=== PATIENT | male | born 1960 | race Caucasian/White ===

== ENCOUNTER 2021-07-09 10:31 | Day surgery (SDC) | payer BC, OTHER ==
[2021-07-09] MEDS ORDERED: KETAMINE HCL 500 MG/10 ML VIAL ONE (12:52)
== END 2021-07-09 14:35 | disposition home or self-care (01) ==
LOC: FECT 10:31
PROVIDERS: ATTEND Psychiatry & Neurology Psychiatry
PROC: GZB4ZZZ Other Electroconvulsive Therapy (ICD-10-PCS; principal; 2021-07-09 12:00)
DX: F32.9 Major depressive disorder, single episode, unspecified (principal)
CPT/HCPCS: 90870; 93005; 93010; 94760; C9803; U0003; U0005

== ENCOUNTER 2021-07-12 09:51 | Day surgery (SDC) | payer BC, OTHER ==
[2021-07-12 10:26] VITALS: BMI 38.0
[2021-07-12] MEDS ORDERED: KETAMINE HCL 500 MG/10 ML VIAL ONE (12:28)
[2021-07-12 13:58] VITALS: TEMP 97.8
[2021-07-12 14:16] VITALS: BP 124/70; PULSE 76
== END 2021-07-12 13:55 | disposition home or self-care (01) ==
LOC: FECT 09:51
PROVIDERS: ATTEND Psychiatry & Neurology Psychiatry
PROC: GZB4ZZZ Other Electroconvulsive Therapy (ICD-10-PCS; principal; 2021-07-12 12:00)
DX: F32.9 Major depressive disorder, single episode, unspecified (principal)
CPT/HCPCS: 90870; 94760; C9803; U0003; U0005

== ENCOUNTER 2021-07-16 10:02 | Day surgery (SDC) | payer BC ==
[2021-07-16 11:17] VITALS: BMI 38.0
[2021-07-16] MEDS ORDERED: KETAMINE HCL 500 MG/10 ML VIAL ONE (11:54)
[2021-07-16 13:04] VITALS: TEMP 98.4
[2021-07-16 13:25] VITALS: BP 153/92; PULSE 62
== END 2021-07-16 13:35 | disposition home or self-care (01) ==
LOC: FECT 10:02
PROVIDERS: ATTEND Psychiatry & Neurology Psychiatry
PROC: GZB4ZZZ Other Electroconvulsive Therapy (ICD-10-PCS; principal; 2021-07-16 12:00)
DX: F32.9 Major depressive disorder, single episode, unspecified (principal)
CPT/HCPCS: 90870; 94760; C9803; U0003; U0005

== ENCOUNTER 2021-07-19 09:30 | Day surgery (SDC) | payer BC ==
[2021-07-16 17:52] VITALS: BMI 38.0
[2021-07-19] MEDS ORDERED: KETAMINE HCL 500 MG/10 ML VIAL ONE (10:08)
[2021-07-19 11:14] VITALS: TEMP 97.7
[2021-07-19 13:19] VITALS: BP 127/48; PULSE 58
== END 2021-07-19 12:40 | disposition home or self-care (01) ==
LOC: FECT 09:30
PROVIDERS: ATTEND Psychiatry & Neurology Psychiatry
PROC: GZB4ZZZ Other Electroconvulsive Therapy (ICD-10-PCS; principal; 2021-07-19 11:00)
DX: F32.9 Major depressive disorder, single episode, unspecified (principal)
CPT/HCPCS: 90870; 94760; C9803; U0003; U0005

== ENCOUNTER 2021-07-23 10:23 | Day surgery (SDC) | payer BC, OTHER ==
[2021-07-23 11:00] VITALS: BMI 37.8
[2021-07-23] MEDS ORDERED: SUCCINYLCHOLINE CHLORIDE 200 MG/10 ML SYRINGE ONE (11:31)
[2021-07-23] MEDS ORDERED: KETAMINE HCL 200 MG/20 ML VIAL ONE (11:31)
[2021-07-23 12:03] VITALS: PULSE 58
[2021-07-23 12:42] VITALS: BP 137/77; TEMP 98
== END 2021-07-23 12:50 | disposition home or self-care (01) ==
LOC: FECT 10:23
PROVIDERS: ATTEND Psychiatry & Neurology Psychiatry
PROC: GZB4ZZZ Other Electroconvulsive Therapy (ICD-10-PCS; principal; 2021-07-23 12:00)
DX: F32.9 Major depressive disorder, single episode, unspecified (principal)
CPT/HCPCS: 90870; 94760; C9803; U0003; U0005

== ENCOUNTER 2021-07-26 05:54 | Day surgery (SDC) | payer BC ==
[2021-07-26 06:44] VITALS: BMI 37.8
[2021-07-26] MEDS ORDERED: KETAMINE HCL 500 MG/10 ML VIAL ONE (07:16)
[2021-07-26 07:46] VITALS: TEMP 98
[2021-07-26 08:56] VITALS: BP 112/69; PULSE 53
== END 2021-07-26 08:40 | disposition home or self-care (01) ==
LOC: FECT 05:54
PROVIDERS: ATTEND Psychiatry & Neurology Psychiatry
PROC: GZB4ZZZ Other Electroconvulsive Therapy (ICD-10-PCS; principal; 2021-07-26 07:00)
DX: F32.9 Major depressive disorder, single episode, unspecified (principal)
CPT/HCPCS: 90870; 94760

== ENCOUNTER 2021-08-06 06:18 | Day surgery (SDC) | payer OTHER ==
[2021-07-27 10:12] VITALS: BMI 37.8
[2021-08-06] MEDS ORDERED: KETAMINE HCL 500 MG/10 ML VIAL ONE (07:37)
[2021-08-06 08:35] VITALS: TEMP 97.8
[2021-08-06 09:01] VITALS: BP 118/80; PULSE 56
== END 2021-08-06 09:00 | disposition home or self-care (01) ==
LOC: FECT 06:18
PROVIDERS: ATTEND Psychiatry & Neurology Psychiatry
PROC: GZB4ZZZ Other Electroconvulsive Therapy (ICD-10-PCS; principal; 2021-08-06 08:30)
DX: F32.9 Major depressive disorder, single episode, unspecified (principal)
CPT/HCPCS: 90870; 94760; C9803; U0003; U0005

== ENCOUNTER 2021-08-09 05:48 | Day surgery (SDC) | payer OTHER ==
[2021-07-27 10:23] VITALS: BMI 37.8
[2021-08-09] MEDS ORDERED: KETAMINE HCL 500 MG/10 ML VIAL ONE (07:18)
[2021-08-09] MEDS ORDERED: LIDOCAINE HCL/PF 2% SDV 5ML VIAL ONE (07:39)
[2021-08-09 08:20] VITALS: TEMP 97.8
[2021-08-09 09:30] VITALS: BP 148/74; PULSE 57
== END 2021-08-09 09:25 | disposition home or self-care (01) ==
LOC: FECT 05:48
PROVIDERS: ATTEND Psychiatry & Neurology Psychiatry
PROC: GZB4ZZZ Other Electroconvulsive Therapy (ICD-10-PCS; principal; 2021-08-09 07:30)
DX: F32.9 Major depressive disorder, single episode, unspecified (principal)
CPT/HCPCS: 90870; 94760; C9803; U0003; U0005

== ENCOUNTER 2021-08-13 05:45 | Day surgery (SDC) | payer BC, OTHER ==
[2021-08-08 08:27] VITALS: BMI 37.8
[2021-08-13] MEDS ORDERED: DEXAMETHASONE SOD PHOSPHATE 4 MG/1 ML VIAL ONE (07:10)
[2021-08-13] MEDS ORDERED: PROPOFOL 20 ML ONE (07:10)
[2021-08-13] MEDS ORDERED: KETOROLAC TROMETHAMINE 30 MG/1 ML VIAL ONE (07:10)
[2021-08-13] MEDS ORDERED: KETAMINE HCL 500 MG/10 ML VIAL ONE (07:15)
[2021-08-13] MEDS ORDERED: SUCCINYLCHOLINE CHLORIDE 200 MG/10 ML SYRINGE ONE (07:19)
[2021-08-13 08:33] VITALS: TEMP 97.9
[2021-08-13 09:14] VITALS: BP 128/61; PULSE 61
== END 2021-08-13 09:15 | disposition home or self-care (01) ==
LOC: FECT 05:45
PROVIDERS: ATTEND Psychiatry & Neurology Psychiatry
PROC: GZB4ZZZ Other Electroconvulsive Therapy (ICD-10-PCS; principal; 2021-08-13 07:30)
DX: F32.9 Major depressive disorder, single episode, unspecified (principal)
CPT/HCPCS: 90870; 94760; C9803; U0003; U0005

== ENCOUNTER 2021-08-16 05:53 | Day surgery (SDC) | payer OTHER ==
[2021-08-09 07:47] VITALS: BMI 37.8
[2021-08-16] MEDS ORDERED: KETAMINE HCL 200 MG/20 ML VIAL ONE (07:08)
[2021-08-16] MEDS ORDERED: KETAMINE HCL 500 MG/10 ML VIAL ONE (07:19)
[2021-08-16 08:21] VITALS: TEMP 97.8
[2021-08-16 08:52] VITALS: BP 125/76; PULSE 62
== END 2021-08-16 08:52 | disposition home or self-care (01) ==
LOC: FECT 05:53
PROVIDERS: ATTEND Psychiatry & Neurology Psychiatry
PROC: GZB4ZZZ Other Electroconvulsive Therapy (ICD-10-PCS; principal; 2021-08-16 07:30)
DX: F32.9 Major depressive disorder, single episode, unspecified (principal)
CPT/HCPCS: 90870; 94760; C9803; U0003; U0005

== ENCOUNTER 2021-08-20 06:15 | Day surgery (SDC) | payer BC, OTHER ==
[2021-08-20 06:54] VITALS: BMI 37.8
[2021-08-20] MEDS ORDERED: KETAMINE HCL 500 MG/10 ML VIAL ONE (07:34)
[2021-08-20 09:18] VITALS: TEMP 97.8
[2021-08-20 09:56] VITALS: BP 128/73; PULSE 61
== END 2021-08-20 09:59 | disposition home or self-care (01) ==
LOC: FECT 06:15
PROVIDERS: ATTEND Psychiatry & Neurology Psychiatry
PROC: GZB4ZZZ Other Electroconvulsive Therapy (ICD-10-PCS; principal; 2021-08-20 09:00)
DX: F32.9 Major depressive disorder, single episode, unspecified (principal)
CPT/HCPCS: 90870; 94760; C9803; U0003; U0005

== ENCOUNTER 2021-08-23 05:50 | Day surgery (SDC) | payer BC, OTHER ==
[2021-08-15 14:49] VITALS: BMI 37.8
[2021-08-23] MEDS ORDERED: KETAMINE HCL 500 MG/10 ML VIAL ONE (07:14)
[2021-08-23] MEDS ORDERED: PROPOFOL 20 ML ONE (07:23)
[2021-08-23] MEDS ORDERED: SUCCINYLCHOLINE CHLORIDE 200 MG/10 ML SYRINGE ONE (07:23)
[2021-08-23 08:22] VITALS: TEMP 97.8
[2021-08-23 08:59] VITALS: BP 121/79; PULSE 69
== END 2021-08-23 08:50 | disposition home or self-care (01) ==
LOC: FECT 05:50
PROVIDERS: ATTEND Psychiatry & Neurology Psychiatry
PROC: GZB4ZZZ Other Electroconvulsive Therapy (ICD-10-PCS; principal; 2021-08-23 07:30)
DX: F32.9 Major depressive disorder, single episode, unspecified (principal)
CPT/HCPCS: 90870; 94760; C9803; U0003; U0005

== ENCOUNTER 2021-08-27 05:59 | Day surgery (SDC) | payer BC, OTHER ==
[2021-08-24 12:16] VITALS: BMI 37.8
[2021-08-27] MEDS ORDERED: KETAMINE HCL 500 MG/10 ML VIAL ONE (07:33)
[2021-08-27 08:46] VITALS: TEMP 97.8
[2021-08-27 09:28] VITALS: BP 136/69; PULSE 69
[2021-08-27] MEDS ORDERED: ONDANSETRON 4 MG/2 ML VIAL IVPUSH PRN (11:19)
[2021-08-27] MEDS ORDERED: LACTATED RINGERS SOLUTION 1,000 ML IV SCH (11:30)
== END 2021-08-27 09:40 | disposition home or self-care (01) ==
LOC: FECT 05:59
PROVIDERS: ATTEND Psychiatry & Neurology Psychiatry
PROC: GZB4ZZZ Other Electroconvulsive Therapy (ICD-10-PCS; principal; 2021-08-27 08:00)
DX: F32.9 Major depressive disorder, single episode, unspecified (principal)
CPT/HCPCS: 90870; 94760; C9803; U0003; U0005

== ENCOUNTER 2021-08-29 05:49 | Day surgery (SDC) | payer OTHER ==
[2021-08-27 09:02] VITALS: BMI 37.8
[2021-08-29 06:18] VITALS: TEMP 97.8
[2021-08-29] MEDS ORDERED: KETAMINE HCL 500 MG/10 ML VIAL ONE (06:45)
[2021-08-29 08:02] VITALS: BP 133/77; PULSE 56
== END 2021-08-29 08:05 | disposition home or self-care (01) ==
LOC: FECT 05:49
PROVIDERS: ATTEND Psychiatry & Neurology Psychiatry
PROC: GZB4ZZZ Other Electroconvulsive Therapy (ICD-10-PCS; principal; 2021-08-29 06:45)
DX: F32.9 Major depressive disorder, single episode, unspecified (principal)
CPT/HCPCS: 90870; 94760; C9803; U0003; U0005

== ENCOUNTER 2021-09-03 05:53 | Day surgery (SDC) | payer BC, OTHER ==
[2021-08-27 12:48] VITALS: BMI 37.8
[2021-09-03] MEDS ORDERED: KETAMINE HCL 500 MG/10 ML VIAL ONE (07:38)
[2021-09-03 08:45] VITALS: TEMP 97.8
[2021-09-03 09:00] VITALS: BP 130/80; PULSE 69
== END 2021-09-03 09:05 | disposition home or self-care (01) ==
LOC: FECT 05:53
PROVIDERS: ATTEND Psychiatry & Neurology Psychiatry
PROC: GZB4ZZZ Other Electroconvulsive Therapy (ICD-10-PCS; principal; 2021-09-03 08:00)
DX: F32.9 Major depressive disorder, single episode, unspecified (principal)
CPT/HCPCS: 90870; 94760; C9803; U0003; U0005

== ENCOUNTER 2021-09-07 05:50 | Day surgery (SDC) | payer OTHER, BC ==
[2021-09-07] MEDS ORDERED: KETAMINE HCL 500 MG/10 ML VIAL ONE (07:11)
[2021-09-10 15:56] VITALS: BMI 37.8
[2021-09-10 16:03] VITALS: TEMP 97.8
[2021-09-10 16:04] VITALS: BP 130/69; PULSE 89
== END 2021-09-07 08:50 | disposition home or self-care (01) ==
LOC: FECT 05:50
PROVIDERS: ATTEND Psychiatry & Neurology Psychiatry
PROC: GZB4ZZZ Other Electroconvulsive Therapy (ICD-10-PCS; principal; 2021-09-07 07:30)
DX: F32.9 Major depressive disorder, single episode, unspecified (principal)
CPT/HCPCS: 90870; 94760; C9803; U0003; U0005

== ENCOUNTER 2021-09-10 05:52 | Day surgery (SDC) | payer BC, OTHER ==
[2021-09-06 16:04] VITALS: BMI 37.8
[2021-09-10 08:41] VITALS: TEMP 98
[2021-09-10 09:23] VITALS: BP 112/66; PULSE 64
== END 2021-09-10 09:30 | disposition home or self-care (01) ==
LOC: FECT 05:52
PROVIDERS: ATTEND Psychiatry & Neurology Psychiatry
PROC: GZB4ZZZ Other Electroconvulsive Therapy (ICD-10-PCS; principal; 2021-09-10 08:00)
DX: F33.2 Major depressive disorder, recurrent severe without psychotic features (principal)
CPT/HCPCS: 90870; 94760; C9803; U0003; U0005

== ENCOUNTER → 2021-09-13 | Day surgery (SDC) | payer BC, OTHER ==
[2021-09-12 15:23] VITALS: BMI 37.8
[~2021-09-13] MED LIST: KETAMINE HCL 200 MG/20 ML VIAL ONE; PROPOFOL 20 ML ONE
[2021-09-13 09:49] VITALS: BP 124/82; PULSE 80; TEMP 97.8
== END | disposition home or self-care (01) ==
LOC: FECT 05:44
PROVIDERS: ATTEND Psychiatry & Neurology Psychiatry
PROC: GZB4ZZZ Other Electroconvulsive Therapy (ICD-10-PCS; principal; 2021-09-13 07:30)
DX: F32.9 Major depressive disorder, single episode, unspecified (principal)
CPT/HCPCS: 90870; 94760; C9803; U0003; U0005

== ENCOUNTER 2021-09-17 05:45 | Day surgery (SDC) | payer BC, OTHER ==
[2021-09-14 08:43] VITALS: BMI 37.8
[2021-09-17] MEDS ORDERED: KETAMINE HCL 500 MG/10 ML VIAL ONE (08:04)
[2021-09-17 09:18] VITALS: TEMP 97.3
[2021-09-17 09:41] VITALS: BP 116/72; PULSE 64
== END 2021-09-17 09:42 | disposition home or self-care (01) ==
LOC: FECT 05:45
PROVIDERS: ATTEND Psychiatry & Neurology Psychiatry
PROC: GZB4ZZZ Other Electroconvulsive Therapy (ICD-10-PCS; principal; 2021-09-17 08:00)
DX: F32.9 Major depressive disorder, single episode, unspecified (principal)
CPT/HCPCS: 90870; 94760; C9803; U0003; U0005

== ENCOUNTER 2021-09-20 06:11 | Day surgery (SDC) | payer BC, OTHER ==
[2021-09-19 08:13] VITALS: BMI 37.8
[2021-09-20] MEDS ORDERED: KETAMINE HCL 500 MG/10 ML VIAL ONE (07:27)
[2021-09-20 09:11] VITALS: TEMP 97.1
[2021-09-20 09:39] VITALS: BP 122/73; PULSE 61
== END 2021-09-20 09:40 | disposition home or self-care (01) ==
LOC: FECT 06:11
PROVIDERS: ATTEND Psychiatry & Neurology Psychiatry
PROC: GZB4ZZZ Other Electroconvulsive Therapy (ICD-10-PCS; principal; 2021-09-20 08:00)
DX: F32.9 Major depressive disorder, single episode, unspecified (principal)
CPT/HCPCS: 90870; 94760; C9803; U0003; U0005

== ENCOUNTER 2021-09-24 05:59 | Day surgery (SDC) | payer BC ==
[2021-09-21 14:01] VITALS: BMI 37.8
[2021-09-24 09:00] VITALS: TEMP 97.8
[2021-09-24 09:29] VITALS: PULSE 63
[2021-09-24 09:31] VITALS: BP 118/85
== END 2021-09-24 09:22 | disposition home or self-care (01) ==
LOC: FECT 05:59
PROVIDERS: ATTEND Psychiatry & Neurology Psychiatry
PROC: GZB4ZZZ Other Electroconvulsive Therapy (ICD-10-PCS; principal; 2021-09-24)
DX: F33.2 Major depressive disorder, recurrent severe without psychotic features (principal)
CPT/HCPCS: 90870; 94760; C9803; U0003; U0005

== ENCOUNTER 2021-09-26 05:48 | Day surgery (SDC) | payer OTHER, BC ==
[2021-09-24 11:24] VITALS: BMI 37.8
[2021-09-26] MEDS ORDERED: SUCCINYLCHOLINE CHLORIDE 200 MG/10 ML SYRINGE ONE (07:42)
[2021-09-26] MEDS ORDERED: KETAMINE HCL 200 MG/20 ML VIAL ONE (07:42)
[2021-09-26] MEDS ORDERED: PROPOFOL 20 ML ONE (07:42)
[2021-09-26 09:12] VITALS: TEMP 98.6
[2021-09-26 09:23] VITALS: BP 112/67; PULSE 60
== END 2021-09-26 09:05 | disposition home or self-care (01) ==
LOC: FECT 05:48
PROVIDERS: ATTEND Psychiatry & Neurology Psychiatry
PROC: GZB4ZZZ Other Electroconvulsive Therapy (ICD-10-PCS; principal; 2021-09-26 07:30)
DX: F32.9 Major depressive disorder, single episode, unspecified (principal)
CPT/HCPCS: 90870; 94760; C9803; U0003; U0005

== ENCOUNTER 2021-10-01 06:00 | Day surgery (SDC) | payer OTHER, BC ==
[2021-10-01 07:12] VITALS: BMI 37.8
[2021-10-01] MEDS ORDERED: KETAMINE HCL 500 MG/10 ML VIAL ONE (07:55)
[2021-10-01 09:06] VITALS: BP 120/68; PULSE 60; TEMP 97.9
== END 2021-10-01 09:25 | disposition home or self-care (01) ==
LOC: FECT 06:00
PROVIDERS: ATTEND Psychiatry & Neurology Psychiatry
PROC: GZB4ZZZ Other Electroconvulsive Therapy (ICD-10-PCS; principal; 2021-10-01 08:00)
DX: F33.2 Major depressive disorder, recurrent severe without psychotic features (principal)
CPT/HCPCS: 90870; 94760; C9803; U0003; U0005

== ENCOUNTER 2021-10-04 07:38 | Day surgery (SDC) | payer BC, OTHER ==
[2021-10-04 08:01] VITALS: BMI 37.9
[2021-10-04] MEDS ORDERED: PROPOFOL 20 ML ONE (09:46)
[2021-10-04] MEDS ORDERED: KETOROLAC TROMETHAMINE 30 MG/1 ML VIAL ONE (09:46)
[2021-10-04] MEDS ORDERED: LIDOCAINE HCL/PF 2% SDV 5ML VIAL ONE (09:46)
[2021-10-04] MEDS ORDERED: DEXAMETHASONE SOD PHOSPHATE 4 MG/1 ML VIAL ONE (09:46)
[2021-10-04 10:37] VITALS: TEMP 97.7
[2021-10-04 11:15] VITALS: BP 129/73; PULSE 61
[2021-10-05 16:11] LABS: SARS-CoV-2 NAA Not Detected (Not Detected)
== END 2021-10-04 11:15 | disposition home or self-care (01) ==
LOC: FECT 07:38
PROVIDERS: ATTEND Psychiatry & Neurology Psychiatry
PROC: GZB4ZZZ Other Electroconvulsive Therapy (ICD-10-PCS; principal; 2021-10-04 09:30)
DX: F32.9 Major depressive disorder, single episode, unspecified (principal)
CPT/HCPCS: 90870; 94760; C9803; U0003; U0005

== ENCOUNTER 2021-10-08 07:25 | Day surgery (SDC) | payer OTHER, BC ==
[2021-10-08 08:26] VITALS: TEMP 98; BMI 37.9
[2021-10-08 11:14] VITALS: BP 112/69; PULSE 58
[2021-10-09 14:12] LABS: SARS-CoV-2 NAA Not Detected (Not Detected)
== END 2021-10-08 11:20 | disposition home or self-care (01) ==
LOC: FECT 07:25
PROVIDERS: ATTEND Psychiatry & Neurology Psychiatry
PROC: GZB4ZZZ Other Electroconvulsive Therapy (ICD-10-PCS; principal; 2021-10-08 09:30)
DX: F32.9 Major depressive disorder, single episode, unspecified (principal)
CPT/HCPCS: 90870; 94760; C9803; U0003; U0005

== ENCOUNTER 2021-10-11 05:59 | Day surgery (SDC) | payer OTHER, BC ==
[2021-10-08 16:38] VITALS: BMI 37.8
[2021-10-11] MEDS ORDERED: KETAMINE HCL 500 MG/10 ML VIAL ONE (07:20)
[2021-10-11 08:52] VITALS: TEMP 97.7
[2021-10-11 09:14] VITALS: BP 114/67; PULSE 64
== END 2021-10-11 09:10 | disposition home or self-care (01) ==
LOC: FECT 05:59
PROVIDERS: ATTEND Psychiatry & Neurology Psychiatry
PROC: GZB4ZZZ Other Electroconvulsive Therapy (ICD-10-PCS; principal; 2021-10-11 08:00)
DX: F32.9 Major depressive disorder, single episode, unspecified (principal)
CPT/HCPCS: 90870; 94760

== ENCOUNTER 2021-10-18 07:32 | Day surgery (SDC) | payer OTHER, BC ==
[2021-10-12 08:11] VITALS: BMI 37.8
[2021-10-18 10:24] VITALS: TEMP 98.4
[2021-10-18 10:50] VITALS: BP 126/74; PULSE 73
== END 2021-10-18 10:52 | disposition home or self-care (01) ==
LOC: FECT 07:32
PROVIDERS: ATTEND Psychiatry & Neurology Psychiatry
PROC: GZB4ZZZ Other Electroconvulsive Therapy (ICD-10-PCS; principal; 2021-10-18 09:30)
DX: F32.9 Major depressive disorder, single episode, unspecified (principal)
CPT/HCPCS: 90870; 94760

== ENCOUNTER 2021-10-25 07:34 | Day surgery (SDC) | payer BC, OTHER ==
[2021-10-19 15:21] VITALS: BMI 37.8
[2021-10-25] MEDS ORDERED: KETAMINE HCL 500 MG/10 ML VIAL ONE (08:15)
[2021-10-25 09:41] VITALS: TEMP 98.2
[2021-10-25 10:09] VITALS: BP 133/84; PULSE 65
== END 2021-10-25 10:00 | disposition home or self-care (01) ==
LOC: FECT 07:34
PROVIDERS: ATTEND Psychiatry & Neurology Psychiatry
PROC: GZB4ZZZ Other Electroconvulsive Therapy (ICD-10-PCS; principal; 2021-10-25 09:00)
DX: F32.9 Major depressive disorder, single episode, unspecified (principal)
CPT/HCPCS: 90870; 94760

== ENCOUNTER 2021-11-01 06:04 | Day surgery (SDC) | payer OTHER ==
[2021-10-29 14:35] VITALS: BMI 37.8
[2021-11-01 09:00] VITALS: BP 116/79; PULSE 61; TEMP 98.6
== END 2021-11-01 09:15 | disposition home or self-care (01) ==
LOC: FECT 06:04
PROVIDERS: ATTEND Psychiatry & Neurology Psychiatry
PROC: GZB4ZZZ Other Electroconvulsive Therapy (ICD-10-PCS; principal; 2021-11-01 08:00)
DX: F32.9 Major depressive disorder, single episode, unspecified (principal)
CPT/HCPCS: 90870; 94760

== ENCOUNTER 2021-11-15 09:02 | Day surgery (SDC) | payer OTHER, BC ==
[2021-11-02 12:13] VITALS: BMI 37.8
[2021-11-15] MEDS ORDERED: KETAMINE HCL 500 MG/10 ML VIAL ONE (10:11)
[2021-11-15 10:41] VITALS: TEMP 97.5
[2021-11-15 11:50] VITALS: BP 114/61; PULSE 64
== END 2021-11-15 11:35 | disposition home or self-care (01) ==
LOC: FECT 09:02
PROVIDERS: ATTEND Psychiatry & Neurology Psychiatry
PROC: GZB4ZZZ Other Electroconvulsive Therapy (ICD-10-PCS; principal; 2021-11-15 10:00)
DX: F32.9 Major depressive disorder, single episode, unspecified (principal)
CPT/HCPCS: 90870; 94760

== ENCOUNTER 2021-11-29 07:31 | Day surgery (SDC) | payer OTHER, BC ==
[2021-11-29 08:23] VITALS: BMI 37.8
[2021-11-29 08:24] LABS: ALBUMIN 3.7 g/dl (3.4-5.0); CALCIUM 9.6 mg/dl (8.5-10); CREATININE 1.3 mg/dl (0.55-1.3); MAGNESIUM 1.8 mg/dL (1.8-2.4); TOT PROT 6.5 g/dl (6.4-8.2)
[2021-11-29 09:58] LABS: BASO % 1.8 % (0-2.0); EOS % 3.6 % (0-4.5); HEMATOCRIT 43.7 % (35.4-49); LYMPH % 43.7 % (8-40); MCH 30.8 pg (25.7-33.7); MCHC 34.2 g/dl (32.0-35.9); MEAN CELL VOLUME 90.1 fl (80-96); MEAN PLT VOLUME 8.7 fl (7.5-11.1); MONO % 11.7 % (3.8-10.2); NEUT % 39.2 % (42.8-82.8); PLATELET COUNT 160 10^3/uL (134-434); RBC 4.86 M/mm3 (4.00-5.60); RDW 13.4 % (11.9-15.9); WHITE BLOOD COUNT 5.3 K/mm3 (4.0-10.0)
[2021-11-29] MEDS ORDERED: KETAMINE HCL 500 MG/10 ML VIAL ONE (10:35)
[2021-11-29 11:45] VITALS: TEMP 98.1
[2021-11-29 11:52] VITALS: BP 140/63; PULSE 84
== END 2021-11-29 11:55 | disposition home or self-care (01) ==
LOC: FECT 07:31
PROVIDERS: ATTEND Psychiatry & Neurology Psychiatry
PROC: GZB4ZZZ Other Electroconvulsive Therapy (ICD-10-PCS; principal; 2021-11-29 10:38)
DX: F33.2 Major depressive disorder, recurrent severe without psychotic features (principal)
CPT/HCPCS: 36415; 80053; 83735; 85025; 90870; 94760